=== PATIENT | male | born 1955 | race Caucasian/White ===

== ENCOUNTER 2017-07-05 12:39 | Inpatient (IN) | payer OTHER ==
[~2017-07-05] VITALS: Ht 175.3 cm; Wt 88.9 kg
[2017-08-09] MEDS ORDERED: INTESTINEX680 M1 PO (13:12)
== END 2017-07-18 13:12 | disposition home or self-care (01) | DRG 330 ==
LOC: ADM 13:15 → SURH 07-12 05:16 → O/R 07-12 05:16 → SURH 07-12 13:06 → CIR.AMB 07-12 13:15 → SURH 07-12 13:15 → EDSTATUS 07-12 13:15 → SURH 07-12 17:30 → EDBD 07-18 13:12
PROVIDERS: Colon & Rectal Surgery
PROC: 0DTP4ZZ Resection of Rectum, Percutaneous Endoscopic Approach (ICD-10-PCS; 2017-07-12)
PROC: 07TC4ZZ Resection of Pelvis Lymphatic, Percutaneous Endoscopic Approach (ICD-10-PCS; 2017-07-12)
PROC: 0D1B4Z4 Bypass Ileum to Cutaneous, Percutaneous Endoscopic Approach (ICD-10-PCS; 2017-07-12)
PROC: 0WQF4ZZ Repair Abdominal Wall, Percutaneous Endoscopic Approach (ICD-10-PCS; 2017-07-12)
PROC: 0DJD8ZZ Inspection of Lower Intestinal Tract, Via Natural or Artificial Opening Endoscopic (ICD-10-PCS; 2017-07-12)
PROC: 0DTN4ZZ Resection of Sigmoid Colon, Percutaneous Endoscopic Approach (ICD-10-PCS; principal; 2017-07-12 17:30)
PROC: 3E0336Z Introduction of Nutritional Substance into Peripheral Vein, Percutaneous Approach (ICD-10-PCS; 2017-07-14)
DX: C20 Malignant neoplasm of rectum (principal); K56.0 Paralytic ileus; K91.89 Other postprocedural complications and disorders of digestive system; K43.9 Ventral hernia without obstruction or gangrene; I10 Essential (primary) hypertension

== ENCOUNTER 2017-08-05 11:47 | Outpatient (CLI) | payer OTHER ==
[2017-08-09] MEDS ORDERED: INTESTINEX680 M1 PO (13:12)
== END 2017-08-05 11:48 | disposition home or self-care (01) ==
LOC: RAD 11:47 → EDBD 11:47 → RAD 11:48
DX: C20 Malignant neoplasm of rectum (principal); K92.1 Melena; R59.0 Localized enlarged lymph nodes; Z85.048 Personal history of other malignant neoplasm of rectum, rectosigmoid junction, and anus

== ENCOUNTER → 2017-08-06 08:55 | Outpatient (CLI) | payer OTHER ==
[~2017-08-06 08:55] MED LIST: INTESTINEX680 M1 PO
== END | disposition home or self-care (01) ==
LOC: LAB 08:55 → EDBD 08:55
DX: C20 Malignant neoplasm of rectum (principal); Z85.048 Personal history of other malignant neoplasm of rectum, rectosigmoid junction, and anus; K92.1 Melena; R59.0 Localized enlarged lymph nodes; Z00.01 Encounter for general adult medical examination with abnormal findings

== ENCOUNTER 2017-08-10 05:15 | Day surgery (SDC) | payer OTHER | END 2017-08-10 12:40 | disposition home or self-care (01) | LOC: EDBD → CIR.AMB 05:15 | DX: C20 Malignant neoplasm of rectum (principal) | CPT/HCPCS: 36561; C1751 ==